=== PATIENT | female | born 1940 | race Hispanic/Latino ===

== ENCOUNTER → 2017-09-05 | Outpatient (CLI) | payer OTHER, MEDICARE ==
[~2017-09-05] MED LIST: LEVO75TA10 PO; LOSA25TA21 PO; NAPR-1023 PO; PANT40TA25 PO; PRAV80TA21 PO
== END | disposition home or self-care (01) ==
LOC: RAH 08:35
PROVIDERS: ATTEND Internal Medicine
DX: Z12.31 Encounter for screening mammogram for malignant neoplasm of breast (principal)
CPT/HCPCS: 77067

== ENCOUNTER → 2019-04-07 | Outpatient (CLI) | payer OTHER, MEDICARE ==
[~2019-04-07] MED LIST changes: -LOSA25TA21 PO; +LOSA25TA41 PO
== END | disposition home or self-care (01) ==
LOC: RAH 09:34
PROVIDERS: ATTEND Internal Medicine
DX: Z12.31 Encounter for screening mammogram for malignant neoplasm of breast (principal)
CPT/HCPCS: 77067

== ENCOUNTER → 2020-04-21 | Outpatient (CLI) | payer OTHER, MEDICARE ==
[~2020-04-21] MED LIST changes: -PANT40TA25 PO; +PANT40TA54 PO
== END | disposition home or self-care (01) ==
LOC: RAH 12:43
PROVIDERS: ATTEND Internal Medicine
DX: Z12.31 Encounter for screening mammogram for malignant neoplasm of breast (principal)
CPT/HCPCS: 77067

== ENCOUNTER 2021-12-18 14:08 | Emergency (ER) | payer OTHER, MEDICARE ==
[~2021-12-18] VITALS: Ht 147.3 cm; Wt 70.3 kg
[2021-12-18 14:41] LABS: BASOPHILS % (AUTO) 0.2 % (0.0-5.0); EOSINOPHILS % (AUTO) 0.4 % (0.0-8.0); HEMATOCRIT 45.3 % (36-48); LYMPHOCYTES % (AUTO) 13.3 % (21.0-51.0); MEAN CORPUSCULAR HEMOGLOBIN 30.3 pg (27.0-33.0); MEAN CORPUSCULAR VOLUME 89.2 fL (79-99); MONOCYTES % (AUTO) 2.7 % (3.0-13.0); NEUTROPHILS % (AUTO) 83.2 % (40.0-77.0); PLATELET COUNT (AUTO) 206 K/uL (130-400); RED BLOOD CELL COUNT(AUTO) 5.08 MIL/uL (4.00-5.50); RED CELL DISTRIBUTION WIDTH 12.3 % (11.0-15.5); WHITE BLOOD COUNT (AUTO) 9.3 K/uL (4.8-10.8)
[2021-12-18 14:53] LABS: CREATININE 0.9 mg/dL (0.5-1.5)
[2021-12-18 15:00] LABS: ALBUMIN 4.1 g/dL (3.5-5.0); TOTAL PROTEIN, SERUM 8.2 g/dL (6.0-8.3)
[2021-12-18 15:14] LABS: APPEARANCE,URINE CLEAR (CLEAR); BILIRUBIN,URINE NEGATIVE (NEGATIVE); COLOR,URINE YELLOW (YELLOW); GLUCOSE, URINE (UA) NEGATIVE (NEGATIVE); KETONES,URINE NEGATIVE (NEGATIVE); LEUKOCYTE ESTERASE ,URINE NEGATIVE Leu/uL (NEGATIVE); NITRATE,URINE NEGATIVE (NEGATIVE); OCCULT BLOOD,URINE SMALL (NEGATIVE); PROTEIN,URINE 30 mg/dL (NEGATIVE); UROBILINOGEN,URINE 0.2 mg/dL (0.2-1.0)
[2021-12-18] MEDS ORDERED: 0.9%NACL 1000ML 1,000 ML IV ONE (15:30)
[2021-12-18 15:35] LABS: BACTERIA,URINE RARE /HPF (None Seen); MUCUS,URINE FEW LPF (None Seen); SQUAMOUS EPITHELIAL CELL,UR FEW /HPF (0-2)
[2021-12-18] MEDS ORDERED: OSEL75 PO (18:08)
[2021-12-18 18:21] VITALS: BP 147/80
[2021-12-18] MEDS ORDERED: ONDA4TAB10 PO (18:30)
== END 2021-12-18 18:25 | disposition home or self-care (01) ==
LOC: EDH 14:08 → MERGE 14:08 → EDH 18:25
DX: J10.1 Influenza due to other identified influenza virus with other respiratory manifestations (principal); Z20.822 Contact with and (suspected) exposure to COVID-19; E78.00 Pure hypercholesterolemia, unspecified; I10 Essential (primary) hypertension; Z98.890 Other specified postprocedural states; Z88.8 Allergy status to other drugs, medicaments and biological substances; Z88.5 Allergy status to narcotic agent
CPT/HCPCS: 99284; 96360; 87635; 84484; 80053; 85025; 87804 ×2; 81001; 36415; 93005; C9803; J7030

== ENCOUNTER 2022-04-07 14:28 | Emergency (ER) | payer OTHER, MEDICARE ==
[~2022-04-07] VITALS: Ht 139.7 cm; Wt 68.5 kg
[~2022-04-07 14:28] MED LIST changes: +ONDA4TAB10 PO; +OSEL75 PO
[2022-04-07 14:42] VITALS: BP 131/88
[2022-04-07] MEDS ORDERED: KETOROLAC 30MG VIAL (30MG/ML) IM ONE (17:30)
[2022-04-07] MEDS ORDERED: CYCL10TA16 PO (18:00)
== END 2022-04-07 18:51 | disposition home or self-care (01) ==
LOC: EDH 14:28
DX: G89.29 Other chronic pain (principal); M25.561 Pain in right knee; E11.9 Type 2 diabetes mellitus without complications; Z88.8 Allergy status to other drugs, medicaments and biological substances; Z88.5 Allergy status to narcotic agent; Z90.49 Acquired absence of other specified parts of digestive tract
CPT/HCPCS: 99283; 29505; 73562; 96372; J1885

== ENCOUNTER 2022-11-29 18:14 | Emergency (ER) | payer OTHER, MEDICARE ==
[~2022-11-29] VITALS: Ht 144.8 cm; Wt 69.9 kg
[~2022-11-29 18:14] MED LIST changes: +CYCL10TA16 PO
[2022-11-29] MEDS ORDERED: ONDANSETRON ODT 4MG TAB SL ONE (19:30)
[2022-11-29 19:53] LABS: SARS-CoV-2, RNA, NAAT NEGATIVE SARS CoV-2 (NEGATIVE)
[2022-11-29 19:58] LABS: INFLUENZA TYPE A Negative For Type A (NEGATIVE); INFLUENZA TYPE B Negative For Type B (NEGATIVE)
[2022-11-29] MEDS ORDERED: LORA10TA7 PO (20:08)
[2022-11-29 20:27] VITALS: BP 145/72; PULSE 59; RESP 16; O2SAT 98
== END 2022-11-29 20:34 | disposition home or self-care (01) ==
LOC: EDH 18:14
DX: B34.9 Viral infection, unspecified (principal); E11.9 Type 2 diabetes mellitus without complications; I10 Essential (primary) hypertension; Z79.1 Long term (current) use of non-steroidal anti-inflammatories (NSAID); Z79.890 Hormone replacement therapy; Z79.899 Other long term (current) drug therapy; Z88.5 Allergy status to narcotic agent; Z90.49 Acquired absence of other specified parts of digestive tract; Z20.822 Contact with and (suspected) exposure to COVID-19
CPT/HCPCS: 99283; 87635; 87804 ×2; C9803

== ENCOUNTER → 2024-03-19 | Outpatient (CLI) | payer OTHER, MEDICARE ==
[~2024-03-19] MED LIST changes: -CYCL10TA16 PO; +LORA10TA7 PO; -ONDA4TAB10 PO; -OSEL75 PO
--- NOTE | 2024-03-19 14:25 | HMCIMG ---
US PELVIC NON-OB COMP REASON: PELVIC PAIN COMPARISON: None TECHNIQUE: Routine pelvic sonogram was performed. FINDINGS: Uterus is 6.1 x 4.2 x 5.0 cm, endometrium is 5 mm. There are no focal myometrial or endometrial masses. There are some dystrophic calcifications in the uterus. Right ovary appears normal, 1.8 cm. Left ovary was not well seen. There are no adnexal masses. There is no free fluid in the cul-de-sac. IMPRESSION: 1. Atrophic appearing uterus, no focal mass identified.
== END | disposition home or self-care (01) ==
LOC: RAH 12:32
PROVIDERS: ATTEND Internal Medicine
DX: N85.8 Other specified noninflammatory disorders of uterus (principal); R10.2 Pelvic and perineal pain
CPT/HCPCS: 76856